=== PATIENT | female | born 1945 | race Caucasian/White ===

== ENCOUNTER 2017-11-07 21:12 | Emergency (ER) | payer MEDICARE, BC ==
[~2017-11-07] VITALS: Ht 162.6 cm; Wt 88.0 kg
[~2017-11-07 21:12] MED LIST: ARIXTRA SUBQ; ARTHRITIS PAIN650 M3 PO; BENAZEPRIL HCL10 MG PO; FISH OIL 1,2001 EAC3 PO; MULTIVITAMINS PO; OXECTA5 MG PO; PERCOCET 5-3251 EACH PO; VOLTAREN GEL 1100 G1
[2017-11-07] MEDS ORDERED: PROAIR HFA8.5 GM INH (21:27)
[2017-11-07] MEDS ORDERED: ZPAK PO (21:27)
[2017-11-07] MEDS ORDERED: PREDNISONE 20 M20 M1 PO (21:27)
[2017-11-07] MEDS ORDERED: ASPIRIN325 PO (21:29)
[2017-11-07] MEDS ORDERED: HYDROXYCHLOROQ200 M1 PO (21:29)
[2017-11-07] MEDS ORDERED: CALCIUM 600 +1 EAC1 PO (21:30)
[2017-11-07 21:46] LABS: INFLUENZA A ANTIGEN None Detected (None Detect); INFLUENZA B ANTIGEN None Detected (None Detect)
[2017-11-07] MEDS ORDERED: ZOFRAN ODT4 MG PO (21:50)
[2017-11-07 22:02] VITALS: BP 160/86
== END 2017-11-07 22:23 | disposition home or self-care (01) ==
LOC: M.ERS 21:12
PROVIDERS: Nurse Practitioner Family
DX: J20.9 Acute bronchitis, unspecified (principal); I10 Essential (primary) hypertension; Z90.710 Acquired absence of both cervix and uterus; Z98.890 Other specified postprocedural states; Z88.0 Allergy status to penicillin; Z88.1 Allergy status to other antibiotic agents